=== PATIENT | female | born 1990 | race Caucasian/White ===

== ENCOUNTER 2019-02-22 07:23 | Day surgery (SDC) | payer BC ==
[2019-02-18 14:49] LABS: BASOPHILS % (AUTO) 0.3 % (0-1); EOSINOPHILS # (AUTO) 0.2 X10'3 (0-0.9); EOSINOPHILS % (AUTO) 2.8 % (0-6); LYMPHOCYTES # (AUTO) 1.6 X10'3 (1.1-4.8); LYMPHOCYTES % (AUTO) 20.2 % (21-51); MEAN CORPUSCULAR HEMOGLOBIN 31.9 PG (27.0-31.0); MEAN CORPUSCULAR VOLUME 93.8 FL (78-98); MEAN PLATELET VOLUME 8.6 FL (7.4-10.4); MONOCYTES # (AUTO) 0.3 X10'3 (0-0.9); MONOCYTES % (AUTO) 3.9 % (2-12); NEUTROPHILS # (AUTO) 5.9 X10'3 (1.8-7.7); NEUTROPHILS % (AUTO) 72.8 % (42-75); PRE OP HEMATOCRIT 39.8 % (35.0-45.0); PRE OP HEMOGLOBIN 13.5 g/dL (12.0-16.0); PRE OP PLATELET COUNT 208 X10'3 (140-440); RED BLOOD COUNT 4.25 X10'6 (4.20-5.60)
[2019-02-18 15:00] LABS: ALBUMIN 3.7 G/DL (3.4-5.0); ALBUMIN/GLOBULIN RATIO 1.2 (1.1-1.5); ALKALINE PHOSPHATASE 76 IU/L (46-116); BLOOD UREA NITROGEN 8 MG/DL (7-18); BUN/CREATININE RATIO 9.5 (6.6-38.0); CALCIUM 8.9 MG/DL (8.5-10.1); CHLORIDE 105 MMOL/L (99-107); CREATININE 0.84 MG/DL (0.40-0.90); HCG SERUM QL NEGATIVE; PRE OP ALT 27 U/L (30-65); PRE OP ANION GAP 7 (8-16); PRE OP AST 15 U/L (10-37); PRE OP BILIRUB, TOTAL 0.3 MG/DL (0.0-1.0); PRE OP GLUCOSE 121 MG/DL (70-104); PRE OP POTASSIUM 3.6 MMOL/L (3.4-5.1); PRE OP SODIUM 139 MMOL/L (135-145); TOTAL CARBON DIOXIDE 27.4 MMOL/L (24-32); TOTAL PROTEIN 6.9 G/DL (6.4-8.2); eGFR 80 ML/MIN
[2019-02-22] VITALS (8 sets, daily range): BP systolic 122–158; BP diastolic 65–95
[~2019-02-22] VITALS: Ht 162.6 cm; Wt 89.1 kg
[~2019-02-22 07:23] MED LIST: ALBU8.5H8 INH; BUDE10.2 INH; albuterol 2.5 MG/3 ML nebule NEB ONE; ceFAZolin 2gm in dextrose, iso 100 ML IV ONE; famotidine 20mg tablet PO ONE; ringers solution, lacted 1,000 ML IV SCH
[2019-02-22] MEDS ORDERED: epiNEPHrine 1 mg/ml inj ONE (10:33)
[2019-02-22] MEDS ORDERED: BUPIVAcaine/PF 2.5mg/ml (0.25%) 10ml vial ONE (10:33)
[2019-02-22] MEDS ORDERED: sevoflurane 250ml liquid IH ONE (11:25)
[2019-02-22] MEDS ORDERED: LABETALOL HCL 200mg/40ml (5 MG/ML) inj. IV ONE (11:25)
[2019-02-22] MEDS ORDERED: fentaNYL/PF 50MCG/1 ML 2ML syringe ONE ×2 (11:28→12:12)
[2019-02-22] MEDS ORDERED: midazolam 2 mg/2 ml injection ONE (11:29)
[2019-02-22] MEDS ORDERED: LIDOcaine 2% (20mg/ml) 5ml vial ONE (11:54)
[2019-02-22] MEDS ORDERED: propofol inj 20 ML IV ONE (11:54)
[2019-02-22] MEDS ORDERED: rocuronium 10mg/ml inj IV ONE (11:54)
[2019-02-22] MEDS ORDERED: dexamethasone sod phosphate 4mg/ml inj. ONE (11:55)
[2019-02-22] MEDS ORDERED: glycopyrrolate 0.2mg/ml inj ONE (11:55)
[2019-02-22] MEDS ORDERED: albuterol 60 PUFF/8GM Inhaler IH ONE (11:55)
[2019-02-22] MEDS ORDERED: ondansetron/PF 4mg/2ml inj ONE ×2 (11:55→12:57)
[2019-02-22] MEDS ORDERED: neostigmine methylsulfate 1 MG/ML 10ml vial ONE (11:55)
--- NOTE | 2019-02-22 12:13 | NUR ---
Received from OR via [facility] , accompanied by Anesthesiologist GILMAR and report given by Anesthesiolgist. PATIENT WITH 20G PIV IN RIGHT HAND RUNNING LR AT 100, VSS. ONE UMBILICAL LAP SITE COVERED WITH OP SITE AND 2X2. 10L MASK ON WITH 100% SATURATIONS. Addendum: 02/22/19 at 1230 by Tye Pantoja RN, RN Amended: Links added.
[2019-02-22] MEDS ORDERED: ondansetron/PF 4mg/2ml inj IV ONE (13:05)
[2019-02-22] MEDS ORDERED: ringers solution, lacted 1,000 ML IV SCH (13:07)
[2019-02-22] MEDS ORDERED: morphine 4 MG/ML inj SYRINge IV PRN ×2 (13:10)
[2019-02-22] MEDS ORDERED: meperidine/PF 25mg/ml syringe IV PRN ×3 (13:10)
[2019-02-22] MEDS ORDERED: proCHLORperazine 10 MG/2 ml inj IV PRN (13:10)
[2019-02-22] MEDS ORDERED: ondansetron/PF 4mg/2ml inj IV PRN (13:10)
--- NOTE | 2019-02-22 13:23 | NUR ---
ALL DC CRITERIA HAS BEEN MET. IV TAKEN OUT WITHOUT COMPLICATIONS. ALL INSTRUCTIONS COVERED AND ALL QUESTIONS ANSWERED. DRESSINGS CDI. OUT VIA WHEELCHAIR TO PERSONAL VEHICLE WHERE PATIENT WAS SECURED IN AND DRIVEN HOME BY FAMILY. NAUSEA IMPROVED. DRESSED WITH ASSIST OF SPOUSE. TAKEN HOME BY SPOUSE. MD DURAN SPOKE TO PATIENT PRIOR TO DC. PATIENT STATES THAT SHE IS READY TO GO HOME. DISCUSSED CO2 PAIN IN SHOULDERS WITH . Addendum: 02/22/19 at 1351 by Tye Phoenix - ARELY MCGEE Amended: Links added.
== END 2019-02-22 13:23 | disposition home or self-care (01) ==
LOC: PAS 07:23
PROVIDERS: ATTEND Obstetrics & Gynecology
DX: Z30.2 Encounter for sterilization (principal); Z30.432 Encounter for removal of intrauterine contraceptive device; J45.909 Unspecified asthma, uncomplicated; Z98.890 Other specified postprocedural states; Z87.891 Personal history of nicotine dependence
CPT/HCPCS: 36415; 58301; 58670; 80053; 82948; 84703; 85025; A6258; A6402; J0171; J0690; J1100; J2001; J2250; J2405; J2704; J2710; J3010; J3490; J7120; A7000

== ENCOUNTER 2023-11-08 10:14 | Outpatient (CLI) | payer BC ==
[~2023-11-08] VITALS: Ht 165.1 cm; Wt 97.5 kg
[~2023-11-08 10:14] MED LIST changes: +ALBU8.5H17 INH; -ALBU8.5H8 INH; -albuterol 2.5 MG/3 ML nebule NEB ONE; -ceFAZolin 2gm in dextrose, iso 100 ML IV ONE; -famotidine 20mg tablet PO ONE; -ringers solution, lacted 1,000 ML IV SCH
[2023-11-08 10:36] LABS: TOTAL HEMOGLOBIN 14.7 G/dl (12.0-16.0)
[2023-11-08] MEDS ORDERED: albuterol 2.5 MG/3 ML nebule NEB ONE (11:00)
[2023-11-08 11:17] VITALS: PULSE 94; RESP 16; O2SAT 96
== END 2023-11-08 23:59 | disposition home or self-care (01) ==
LOC: RT 10:14
PROVIDERS: ATTEND Internal Medicine Pulmonary Disease
DX: J45.998 Other asthma (principal); R94.2 Abnormal results of pulmonary function studies
CPT/HCPCS: 85018; 94060; 94727; 94729; 94760